=== PATIENT | female | born 1955 | race African-American/Black ===

== ENCOUNTER 2016-12-08 21:39 | Emergency (ER) | payer MEDICAID ==
[~2016-12-08] VITALS: Ht 165.1 cm; Wt 88.5 kg
[2016-12-09] MEDS ORDERED: IBUPROFEN 600 MG TAB PO ONE (00:30)
[2016-12-09] MEDS ORDERED: CYCLOBENZAPRINE HCL 10 MG TAB PO ONE (00:30)
[2016-12-09 01:00] VITALS: BP 133/78
== END 2016-12-09 02:07 | disposition home or self-care (01) ==
LOC: EDBD 21:39 → ER 21:44
DX: S20.219A Contusion of unspecified front wall of thorax, initial encounter (principal); J45.909 Unspecified asthma, uncomplicated; I10 Essential (primary) hypertension; E07.9 Disorder of thyroid, unspecified; V49.9XXA Car occupant (driver) (passenger) injured in unspecified traffic accident, initial encounter; Y93.89 Activity, other specified; Y99.8 Other external cause status; Y92.89 Other specified places as the place of occurrence of the external cause
CPT/HCPCS: 71010